=== PATIENT | male | born 1960 | race Caucasian/White ===

== ENCOUNTER 2022-11-16 15:57 | Emergency (ER) | payer OTHER ==
[~2022-11-16] VITALS: Ht 170.2 cm; Wt 74.8 kg
[2022-11-16 17:33] LABS: Albumin, Blood 3.6 g/dL (3.4-5.0); Albumin/Globulin Ratio 1.1 (0.8-1.8); Bilirubin, Total 0.6 mg/dL (0.1-1.0); Bun/Creatinine Ratio 20.8 (12.0-20.0); Calcium, Blood 9.4 mg/dL (8.5-10.1); Creatinine, Blood 1.01 mg/dL (0.60-1.20); Globulin, Blood 3.2 g/dL (2.2-4.0); Potassium, Blood 4.1 mmol/L (3.5-5.5); Total Protein, Blood 6.8 g/dL (6.4-8.2)
== END 2022-11-16 23:41 | disposition short-term general hospital (02) ==
LOC: ER 15:57
PROVIDERS: Student in an Organized Health Care Education/Training Program
DX: T54.2X1A Toxic effect of corrosive acids and acid-like substances, accidental (unintentional), initial encounter (principal); H10.213 Acute toxic conjunctivitis, bilateral
CPT/HCPCS: 80053; 82330; 93005; 93010; A9270; J0610; J3010; J7030